=== PATIENT | male | born 1980 | race Caucasian/White ===

== ENCOUNTER 2022-07-04 15:30 | Emergency (ER) | payer MEDICAID ==
[~2022-07-04] VITALS: Ht 162.6 cm; Wt 71.8 kg
[2022-07-04 16:10] VITALS: BP 137/75
--- NOTE | 2022-07-04 16:20 | NUR ---
41yo male pt c/o chest palpitations, sob and vision change due to anxiety xtoday. pt states feeling anxious. denies taking medication for pain, n/v/d, or fevers. pt aaox4 respirations even and unlabored. speaking in clear full sentences. hx:stroke nka
--- NOTE | 2022-07-04 16:22 | NUR ---
PT AMBULATED TO ROOM 10
--- NOTE | 2022-07-04 16:27 | NUR ---
Lisa alejandro in [place] - 07/04/22 at 1627 by PHSEP MD AT [facility] FOR EVALUATION
--- NOTE | 2022-07-04 16:27 | NUR ---
MD PINTO AT BEDSIDE FOR EVALUATION
[2022-07-04] MEDS ORDERED: LORazepam 1 MG TAB PO ONE (16:30)
[2022-07-04] MEDS ORDERED: ATA10 PO (17:13)
[2022-07-04 17:40] VITALS: BP 130/78
--- NOTE | 2022-07-04 17:40 | NUR ---
Patient discharged with v/s stable. Written and verbal after care instructions FOR LIVING W/ ANXIETY given and explained. Patient alert, oriented and verbalized understanding of instructions. Ambulatory with steady gait. All questions addressed prior to discharge. ID band removed. Patient advised to follow up with PMD. Rx of ATARAX given. Opportunity to ask questions provided and answered.
--- NOTE | 2022-07-04 18:35 | NUR ---
The patient's care was reviewed and supervised by Noy Levy, RN, RN.
== END 2022-07-04 17:40 | disposition home or self-care (01) ==
LOC: MED 15:30
DX: F41.9 Anxiety disorder, unspecified (principal)
CPT/HCPCS: 93005; 99283